=== PATIENT | male | born 1945 | race Two or more races ===

== ENCOUNTER 2024-03-21 18:00 | Emergency (ER) | payer OTHER ==
[~2024-03-21] VITALS: Ht 160 cm; Wt 72.6 kg
[2024-03-21] MEDS ORDERED: LASIX20 MG (18:20)
[2024-03-21] MEDS ORDERED: ARICEPT10 MG (18:21)
[2024-03-21] MEDS ORDERED: TRADJENTA5 MG (18:21)
[2024-03-21] MEDS ORDERED: HYDRALAZINE HCL25 MG (18:21)
[2024-03-21] MEDS ORDERED: ZESTRIL2.5 MG (18:21)
[2024-03-21] MEDS ORDERED: ACETAMINOPHEN WITH CODEINE 1 UDTAB TABLET PO STA (19:33)
[2024-03-21] MEDS ORDERED: KETOROLAC TROMETHAMINE 60 MG VIAL IM STA (19:33)
[2024-03-21] MEDS ORDERED: KETOROLAC TROMETHAMINE 60 MG VIAL IM ONE (19:41)
== END 2024-03-21 19:48 | disposition home or self-care (01) ==
LOC: ER 18:02
DX: G62.9 Polyneuropathy, unspecified (principal); E11.9 Type 2 diabetes mellitus without complications; Z91.013 Allergy to seafood
CPT/HCPCS: 96372; 99282; J1885